=== PATIENT | female | born 1955 | race Caucasian/White ===

== ENCOUNTER 2019-11-30 13:44 | Inpatient (IN) | payer BC ==
[~2019-11-30] VITALS: Ht 167.6 cm; Wt 41.3 kg
--- NOTE | 2019-11-30 16:00 | NUR ---
PT REC'D TO ER C/O PAIN AND SWOLLEN FEET ABD PAIN FOR MONTH . WAS SEEN AT ANOTHER HOSP ONE DAY AGO
[2019-11-30] MEDS ORDERED: OLAN2.5T3 PO (16:01)
[2019-11-30] MEDS ORDERED: LEVO50TA PO (16:01)
[2019-11-30 16:30] LABS: APPEARANCE,URINE Clear (CLEAR); BILIRUBIN,URINE Negative (NEGATIVE); BLOOD, URINE Negative Ery/uL (NEGATIVE); COLOR,URINE Yellow (YELLOW); KETONES,URINE Trace (NEGATIVE); LEUKOCYTE ESTERASE ,URINE Negative (NEGATIVE); NITRITE, URINE Negative (NEGATIVE); PH,URINE 5.5 (5.0-8.0); PROTEIN,URINE Negative (NEGATIVE); UGLUCOSE Negative (NEGATIVE); UROBILINOGEN,URINE 0.2 EU/dL (0.2)
[2019-11-30 17:03] LABS: BASOPHILS % (AUTO) 0.5 % (0.0-2.0); EOSINOPHILS % (AUTO) 0.3 % (0.0-6.0); HEMATOCRIT 42 % (33-45); LYMPHOCYTES # (AUTO) 0.7 /CMM (0.8-4.8); LYMPHOCYTES % (AUTO) 20.1 % (20.0-44.0); MEAN CORPUSCULAR HGB CONC 33 g/dl (31.0-36.0); MEAN CORPUSCULAR VOLUME 97 fL (82-100); MONOCYTES # (AUTO) 0.2 /CMM (0.1-1.30); NEUTROPHILS # (AUTO) 2.5 /CMM (1.8-8.9); NEUTROPHILS % (AUTO) 73.1 % (43.0-81.0); PLATELET COUNT (AUTO) 160 /CMM (150-450); RED BLOOD CELL COUNT(AUTO) 4.34 MIL/uL (4.0-5.2); WHITE BLOOD COUNT (AUTO) 3.5 K/uL (4.3-11.0)
--- NOTE | 2019-11-30 17:03 | NUR ---
UA SENT TO LAB PT HAD ULTRASOUND OF FEET AND CT OF ABD. CALLED WI;; ARRIVE TO SPEAK WITH
--- NOTE | 2019-11-30 17:04 | NUR ---
LABS DRAWN SENT TO LAB
[2019-11-30 17:15] LABS: CARBON DIOXIDE 25 mmol/L (21-32); CHLORIDE 100 mmol/L (98-107); CREATININE 1.1 mg/dL (0.6-1.3); GLUCOSE 69 mg/dL (74-106); POTASSIUM 4.2 mmol/L (3.5-5.1); SODIUM SERUM 135 mmol/L (136-145); UREA NITROGEN, BLOOD 19 mg/dL (7-18)
[2019-11-30 17:21] LABS: ALANINE AMINOTRANSFERASE 35 U/L (12-78); ALBUMIN 3.7 g/dL (3.4-5.0); ALKALINE PHOSPHATASE 75 U/L (46-116); ASPARTATE AMINOTRANSFERASE 44 U/L (15-37); BILIRUBIN,DIRECT 0.1 mg/dL (0.0-0.2); BILIRUBIN,TOTAL 0.8 mg/dL (0.2-1.0); TOTAL PROTEIN, SERUM 6.8 g/dL (6.4-8.2)
[2019-11-30 17:38] LABS: THYROID STIMULATING HORMONE 5.628 uIU/mL (0.358-3.74)
--- NOTE | 2019-11-30 17:50 | NUR ---
CALLED BHUPINDER ROMERO. SHE WILL BE HERE IN 1 HOUR.
[2019-11-30 18:25] LABS: ACETAMINOPHEN 0 ug/ml (10-30); ALCOHOL, BLOOD < 3 mg/dL (0-0); SALICYLATE < 0.2 mg/dL (2.8-20.0)
[2019-11-30] MEDS ORDERED: ASPIRIN 81 MG TAB.CHEW PO ONE ×2 (19:00→19:30)
--- NOTE | 2019-11-30 19:05 | NUR ---
[facility] - [phone].
--- NOTE | 2019-11-30 19:07 | NUR ---
trop 0.069 notified md order asa 162 pt refused notified
--- NOTE | 2019-11-30 19:14 | NUR ---
PAGED [facility].
[2019-11-30] MEDS ORDERED: ASPIRIN 81 MG TAB.CHEW ONE (19:16)
--- NOTE | 2019-11-30 19:20 | NUR ---
REPORT RECEIVED FROM LINO ARELLANO FOR PAULINA
--- NOTE | 2019-11-30 19:24 | NUR ---
pt ok 81 mg asa only iv satrted 20g rt ac pt crying very upset didn't like it
--- NOTE | 2019-11-30 20:34 | NUR ---
CALLED TO GIVE REPORT, NO ANSWER
[2019-11-30] MEDS ORDERED: LEVO25TA7 PO (20:41)
--- NOTE | 2019-11-30 20:48 | NUR ---
PT TRANSFERRED TO ROOM IN STABLE CONDITION
--- NOTE | 2019-11-30 21:52 | NUR ---
MS/TELE/RN RECEIVED PATIENT FROM E.R. VIA WHEELCHAIR, AWAKE, ALERT, ORIENTED, ANXIOUS, NO DISTRESS NOTED, NO C/O PAIN AT THIS TIME, ADMISSION DONE PER PROTOCOL, DENIES HISTORY OF SCHIZOPHRENIA, DENIES SUICIDAL IDEATION, REFUSED SKIN ASSESSMENT/PHOTO, TAUGHT THE USE OF CALL LIGHT AND PLACED IT AT BEDSIDE WITHIN REACH. SENT MESSAGE TO DR.TIM HERNANDEZ FOR ADMISSION ORDERS, RECEIVED ORDERS TO START FULL LIQUID DIET. WILL MONITOR.
[2019-11-30] MEDS ORDERED: ACETAMINOPHEN 325 MG TABLET PO PRN (22:30)
[2019-11-30] MEDS ORDERED: ONDANSETRON HCL/PF 4 MG/2 ML VIAL IVP PRN (22:30)
[2019-11-30] MEDS ORDERED: Z GUARD REMEDY 2 OZ OINT TP PRN (22:30)
[2019-11-30] MEDS: OLANZAPINE 5 MG/TAB.RAPDIS SL SCH (22:30)
[2019-11-30 23:00] VITALS: BP 131/87
[2019-11-30] MEDS: IV NS 0.9% 1,000 ML IV PRN (23:33)
[2019-12-01] VITALS: BP 126/64
--- NOTE | 2019-12-01 02:00 | NUR ---
MS/TELE/RN PATIENT IS SLEEPING AT THIS TIME, APPEAR COMFORTABLE, NO SIGNS OF DISTRESS NOTED, CALL LIGHT IN REACH. WILL MONITOR.
[2019-12-01 04:00] VITALS: BP 95/54
[2019-12-01 05:19] LABS: BASOPHILS % (AUTO) 0.4 % (0.0-2.0); EOSINOPHILS % (AUTO) 0.1 % (0.0-6.0); HEMATOCRIT 39 % (33-45); HEMOGLOBIN 13.2 g/dL (11.5-14.8); LYMPHOCYTES # (AUTO) 0.9 /CMM (0.8-4.8); MEAN CORPUSCULAR HGB CONC 34 g/dl (31.0-36.0); MEAN CORPUSCULAR VOLUME 96 fL (82-100); MONOCYTES # (AUTO) 0.2 /CMM (0.1-1.30); MONOCYTES % (AUTO) 6.9 % (2.0-12.0); NEUTROPHILS # (AUTO) 2.4 /CMM (1.8-8.9); NEUTROPHILS % (AUTO) 66.6 % (43.0-81.0); PLATELET COUNT (AUTO) 148 /CMM (150-450); RED BLOOD CELL COUNT(AUTO) 4.06 MIL/uL (4.0-5.2); WHITE BLOOD COUNT (AUTO) 3.6 K/uL (4.3-11.0)
[2019-12-01 05:29] LABS: ALBUMIN 3.3 g/dL (3.4-5.0); BILIRUBIN,TOTAL 0.7 mg/dL (0.2-1.0); CALCIUM, SERUM 8.6 mg/dL (8.5-10.1); CREATININE 0.9 mg/dL (0.6-1.3); MAGNESIUM 2.1 mg/dL (1.8-2.4); PHOSPHORUS 3.9 mg/dL (2.5-4.9)
--- NOTE | 2019-12-01 06:57 | NUR ---
MS/TELE/RN PATIENT IS AWAKE, COMFORTABLE, NO DISTRESS NOTED, CALL LIGHT IN REACH, ALL NEEDS ATTENDED AT THIS TIME, WILL CONTINUE TO MONITOR.
[2019-12-01] MEDS: LEVOTHYROXINE SODIUM 50 MCG TABLET PO SCH (07:30)
--- NOTE | 2019-12-01 07:30 | NUR ---
TELE/RN OPENING NOTES RECEIVED PATIENT ON BED. PATIENT ALERT AND ORIENTED X4. NO RESPIRATORY DISTRESS NOTED. NO COMPLAINED PAIN AT THIS TIME. WILL CONTINUE TO MONITOR.
--- NOTE | 2019-12-01 07:30 | NUR ---
TELE/RN NOTES PATIENT REFUSED TO TAKE LEVOTHYROXINE 50MCG 1 TAB EXPLAINED THE RISK AND BENEFITS PATIENT STILL REFUSING.
[2019-12-01 08:00] VITALS: BP 119/72
[2019-12-01] MEDS: OLANZAPINE 5 MG/TAB.RAPDIS SL SCH ×2 (09:00→17:11)
[2019-12-01] MEDS: ENOXAPARIN SODIUM 40 MG/0.4 ML DISP.SYRIN SQ SCH (09:00)
--- NOTE | 2019-12-01 11:47 | NUR ---
TELE/RN NOTES PATIENT REFUSED TAKING SYNTHROID 50MCG AND LOVENOX 40MG EXPLAINED THE RISK AND BENEFITS PATIENT STILL REFUSED. SYPREXA 5MG IS ON HOLD DUE TO PATIENT IS ON NPO.
--- NOTE | 2019-12-01 12:50 | NUR ---
TELE/RN NOTES PATIENT NOTED TELE MONITOR SVT 154-160 WITH MULTIFOCAL PVC MD IS AWARE AND ORDER A STAT EKG ONCE PATIENT COME BACK FROM THE SCAN
--- NOTE | 2019-12-01 13:00 | NUR ---
TELE/RN NOTES PATIENT IS OUT IN THE UNIT FOR [facility] SCAN SPECIAL EDUCATION PARAPROFESSIONAL SAM.
--- NOTE | 2019-12-01 15:26 | NUR ---
TELE/RN NOTES PATIENT IS BACK IN THE UNIT FROM RADIOLOGY
[2019-12-01] MEDS: IV NS 0.9% 1,000 ML IV PRN (15:28)
[2019-12-01 16:00] VITALS: BP 111/81
--- NOTE | 2019-12-01 16:00 | NUR ---
RT PT REFUSED EKG RN AND CHARGED INFORMED
--- NOTE | 2019-12-01 17:02 | NUR ---
TELE/RN NOTES PATIENT HAVE SVT ELEVATION 154-160 WITH MULTIFOCAL PVC MD IS AWARE AND NO NEW ORDER AT THIS TIME.
--- NOTE | 2019-12-01 19:46 | NUR ---
TELE/RN CLOSING NOTES PATIENT IS ON BED. PATIENT IS ALERT AND ORIENTED X 4. PATIENT DENIES PAIN AT THIS TIME. NO APPARENT DISTRESS NOTED. IVF OF NS 1L AT 75ML/HR ON AND INFUSING WELL. SEEN AND EXAMINED BY MD WITH ORDERS MADE AND CARRIED OUT. SEEN BY PSYCH MD. BED SIDE IN LOW POSITION, SIDE RAILS UP X2. CALL LIGHT WITHIN REACH. WILL ENDORSED TO SWAGING MACHINE ADJUSTER FOR PAULINA.
--- NOTE | 2019-12-01 19:50 | NUR ---
RN OPENING NOTES RECEIVED REPORT FROM DAYSHIFT RN. FOUND Pt AWAKE, WALKING AROUND IN THE ROOM. NO S/S OF ACUTE DISTRESS OR SOB NOTED. Pt IS A/OX3, VERBAL, ABLE TO MAKE NEEDS KNOWN. IS WORRIED AND CONCERNED ABOUT MULTIPLE THINGS, JOSE ABOUT FOOD AND SUGAR. PER REPORT Pt WAS SEEN BY PSYCH MD DR ACEVES. ON TELE MONITOR, WITH TELE READING SR 65 TO SB 45 WHEN SLEEPING, BASELINE. IV ACCESS ON RAC #20G, IVF NS RUNNING @75ML/HR. SAFETY MEASURES IN PLACE. BED LOW, LOCKED, HOB ELEVATED, SIDE RAILS UP, CALL LIGHT AND BEDSIDE TABLE WITHIN REACH. WILL CONTINUE TO MONITOR Pt's CONDITION AND SAFETY THROUGHOUT THE NIGHT.
[2019-12-01 20:30] VITALS: BP 122/73
[2019-12-01 20:34] VITALS: BP 122/73
[2019-12-01] MEDS ORDERED: ATORVASTATIN 10 MG TABLET PO SCH (22:00)
[2019-12-02 00:30] VITALS: BP 110/73
[2019-12-02] MEDS: IV NS 0.9% 1,000 ML IV PRN ×2 (06:25→21:13)
--- NOTE | 2019-12-02 06:50 | NUR ---
RN CLOSING NOTES NO SIGNIFICANT CHANGES IN Pt's CONDITION. Pt REMAINS STABLE PER BASELINE. NO S/S OF ACUTE DISTRESS OR SOB NOTED DURING THE NIGHT. Pt IS RESTING COMFORTABLY IN BED. ALL NEEDS MET AND ATTENDED TO. SAFETY MEASURES IN PLACE. BED LOW, LOCKED, HOB ELEVATED, SIDE RAILS UP, CALL LIGHT AND BEDSIDE TABLE WITHIN REACH. TELE READING SR 65. WILL ENDORSE TO DAYSHIFT RN FOR Pt's PAULINA.
--- NOTE | 2019-12-02 07:30 | NUR ---
MS RN NOTES RECEIVED PATIENT IN BED, ASLEEP. AROUSABLE TO VERBAL AND TACTILE STIMULI. NO SOB. DENIES ANY C/O PAIN NOR DISCOMFORT AT THIS TIME. RIGHT AC # 20 INTACT AND PATENT INFUSING NS @ 75ML/HR MILI WELL. CALL LIGHT WITHIN REACH. BED IN LOWEST POSITION, LOCKED.
[2019-12-02 07:33] LABS: BASOPHILS % (AUTO) 0.6 % (0.0-2.0); EOSINOPHILS % (AUTO) 0.1 % (0.0-6.0); HEMATOCRIT 41 % (33-45); HEMOGLOBIN 13.6 g/dL (11.5-14.8); LYMPHOCYTES # (AUTO) 0.7 /CMM (0.8-4.8); LYMPHOCYTES % (AUTO) 23.8 % (20.0-44.0); MEAN CORPUSCULAR HGB CONC 33 g/dl (31.0-36.0); MEAN CORPUSCULAR VOLUME 96 fL (82-100); MONOCYTES # (AUTO) 0.2 /CMM (0.1-1.30); MONOCYTES % (AUTO) 5.7 % (2.0-12.0); NEUTROPHILS # (AUTO) 2.1 /CMM (1.8-8.9); NEUTROPHILS % (AUTO) 69.8 % (43.0-81.0); PLATELET COUNT (AUTO) 155 /CMM (150-450); RED BLOOD CELL COUNT(AUTO) 4.31 MIL/uL (4.0-5.2)
[2019-12-02 07:52] LABS: ALBUMIN 3.4 g/dL (3.4-5.0); BILIRUBIN,TOTAL 0.7 mg/dL (0.2-1.0); CALCIUM, SERUM 8.7 mg/dL (8.5-10.1); PHOSPHORUS 3.6 mg/dL (2.5-4.9); TOTAL PROTEIN, SERUM 6.2 g/dL (6.4-8.2)
[2019-12-02 07:55] LABS: THYROID STIMULATING HORMONE 6.152 uIU/mL (0.358-3.74)
[2019-12-02 08:00] VITALS: BP 123/76
[2019-12-02] MEDS: LEVOTHYROXINE SODIUM 50 MCG TABLET PO SCH (08:14)
[2019-12-02] MEDS: OLANZAPINE 5 MG/TAB.RAPDIS SL SCH ×2 (09:12→17:57)
[2019-12-02] MEDS: FOLIC ACID 1 MG TABLET PO SCH (09:12)
[2019-12-02] MEDS: ENOXAPARIN SODIUM 40 MG/0.4 ML DISP.SYRIN SQ SCH (09:13)
--- NOTE | 2019-12-02 14:00 | NUR ---
MS RN NOTES RECEIVED A CALL FROM NICOLAS, PER NICOLAS, HE HAD SPOKEN TO PATIENT'S PSYCHIATRIST DR. DIANNA AGEE AND DR. AGEE HAD WANTED PATIENT TO BE TRANSFERRED TO [facility] D/T PSYCH ISSUES AND THAT DR. CHECO ANDREWS AT THAT HOSPITAL WILL RESUME CARE OF THE PATIENT PER DR. AGEE. RODNEY AND COAL BAGGER LIZZIE.
[2019-12-02 16:00] VITALS: BP 120/84
--- NOTE | 2019-12-02 19:17 | NUR ---
MS RN NOTES PATIENT RESTING COMFORTABLY IN BED. NO S/S OF RESPIRATORY DISTRESS. DENIES ANY C/O PAIN NOR DISCOMFORT AT THIS TIME. REQUIRES FREQUENT REDIRECTION. AMBULATORY WITH STEADY GAIT. RIGHT AC # 20 INTACT AND PATENT INFUSING NS @ 75ML/HR MILI WELL. STILL WITH POOR PO INTAKE DESPITE OF EDUCATION AND EXPLANATIONS GIVEN. ABLE TO VERBALIZE NEEDS. CALL LIGHT WITHIN REACH. BED IN LOWEST POSITION, LOCKED. IN NO APPARENT DISTRESS.
--- NOTE | 2019-12-02 19:30 | NUR ---
CORRESPONDENCE TRANSCRIBER NOTE, RECEIVED PATIENT AWAKE AND IN BED, NO S/S OR COMPLAINTS OF PAIN AT THIS TIME. PATIENT BREATHING IS UNLABORED WITH EQUAL RISE AND FALL OF THE CHEST. PATIENT IS ALERT AND ORIENTED X 3 ON ROOM AIR WITH A SPOO2 98%. PATIENT HAS RIGHT AC 20 GAUGE SALINE LOCK THAT IS INTACT, PATENT, AND FLUSHING WELL WITH NO S/S OF INFILTRATION. PATIENT ASSISTED WITH TURNING AND REPOSITIONING Q2HR AND PRN FOR COMFORT AND CIRCULATION. PATIENT HAS NO NEEDS AT THIS TIME. PATIENT EDUCATED ON THE USE OF THE CALL LIGHT. PATIENT BED SIDE RAILS UP X 2 FOR SAFETY. PATIENT BED IS LOCKED AND LOW WILL CONTINUE TO MONITOR AND MAINTAIN SAFETY WITH THE HELP OF STAFF.
[2019-12-02 20:00] VITALS: BP 118/74
--- NOTE | 2019-12-03 06:37 | NUR ---
APPLICATION COUNSELOR NOTE, PATIENT AWAKE AND IN BED, NO S/S OR COMPLAINTS OF PAIN AT THIS TIME. PATIENT BREATHING IS UNLABORED WITH EQUAL RISE AND FALL OF THE CHEST. PATIENT IS ALERT AND ORIENTED X 3 ON ROOM AIR WITH A SPOO2 98%. PATIENT HAS RIGHT FORE ARM 22GAUGE SALINE LOCK THAT IS INTACT, PATENT, AND FLUSHING WELL WITH NO S/S OF INFILTRATION. PATIENT ASSISTED WITH TURNING AND REPOSITIONING Q2HR AND PRN FOR COMFORT AND CIRCULATION. PATIENT HAS NO NEEDS AT THIS TIME. PATIENT BED SIDE RAILS UP X 2 FOR SAFETY. PATIENT BED IS LOCKED AND LOW WILL ENDORSE TO AM SHIFT NURSE FOR CONTINUATION OF CARE.
[2019-12-03] MEDS: LEVOTHYROXINE SODIUM 50 MCG TABLET PO SCH ×2 (07:37→08:08)
[2019-12-03 08:00] VITALS: BP 155/77
[2019-12-03 08:21] LABS: CANCER AG, 125 20.3 U/mL (0.0-38.1); CANCER AG, 15-3 12.9 U/mL (0.0-25.0); IMMUNOGLOBULIN A, SERUM 270 mg/dL (87-352); IMMUNOGLOBULIN G, SERUM 992 mg/dL (586-1602); IMMUNOGLOBULIN M, SERUM 89 mg/dL (26-217)
--- NOTE | 2019-12-03 08:43 | NUR ---
RN NOtes; Received pt. awake is her room an IV if NS at 75cc/hr, responsive to staffs. No sign of distress noted. Compliant on the due meds. Needs attended and safety precautions in place. Bed locked and set to lowest position with side rails x 2 up. Call light within reach. Will continue to monitor.
[2019-12-03] MEDS: FOLIC ACID 1 MG TABLET PO SCH (09:06)
[2019-12-03] MEDS: OLANZAPINE 5 MG/TAB.RAPDIS SL SCH ×3 (09:06→17:11)
[2019-12-03] MEDS: ENOXAPARIN SODIUM 40 MG/0.4 ML DISP.SYRIN SQ SCH ×2 (09:08→10:11)
[2019-12-03 09:11] LABS: BASOPHILS % (AUTO) 0.3 % (0.0-2.0); EOSINOPHILS % (AUTO) 0.1 % (0.0-6.0); HEMATOCRIT 41 % (33-45); HEMOGLOBIN 13.8 g/dL (11.5-14.8); LYMPHOCYTES # (AUTO) 0.5 /CMM (0.8-4.8); LYMPHOCYTES % (AUTO) 15.6 % (20.0-44.0); MEAN CORPUSCULAR HGB CONC 34 g/dl (31.0-36.0); MEAN CORPUSCULAR VOLUME 96 fL (82-100); MONOCYTES # (AUTO) 0.2 /CMM (0.1-1.30); MONOCYTES % (AUTO) 5.1 % (2.0-12.0); NEUTROPHILS # (AUTO) 2.6 /CMM (1.8-8.9); NEUTROPHILS % (AUTO) 78.9 % (43.0-81.0); PLATELET COUNT (AUTO) 137 /CMM (150-450); RED BLOOD CELL COUNT(AUTO) 4.22 MIL/uL (4.0-5.2); WHITE BLOOD COUNT (AUTO) 3.2 K/uL (4.3-11.0)
[2019-12-03 09:19] LABS: PHOSPHORUS 3.3 mg/dL (2.5-4.9)
--- NOTE | 2019-12-03 10:08 | NUR ---
Notified Aditi SANDERS) for the glucose of 48.
[2019-12-03] MEDS: IV NS 0.9% 1,000 ML IV PRN (13:19)
--- NOTE | 2019-12-03 13:20 | NUR ---
Follow up on NS 1L rendered at 75 ml/hr.
--- NOTE | 2019-12-03 13:42 | NUR ---
Notified Aditi Love to give a call to Trey Alex, pts. at [phone].
[2019-12-03 16:00] VITALS: BP 129/84
--- NOTE | 2019-12-03 19:02 | NUR ---
RN Closing Noted: Pt. is awake in the room with NS 1L at 75 ml/hr. Ate 100% for dinner, compliant on meds. No distress, noted. Will endorse to the incoming nurse for the continuity of care.
--- NOTE | 2019-12-03 19:30 | NUR ---
BULLET SWAGING MACHINE OPERATOR NOTE, RECEIVED PATIENT AWAKE AND IN BED, NO S/S OR COMPLAINTS OF PAIN AT THIS TIME. PATIENT BREATHING IS UNLABORED WITH EQUAL RISE AND FALL OF THE CHEST. PATIENT IS ALERT AND ORIENTED X 3 ON ROOM AIR WITH A SPOO2 98%. PATIENT HAS RIGHT FORE ARM 22 GAUGE SALINE LOCK THAT IS INTACT, PATENT, AND FLUSHING WELL WITH NO S/S OF INFILTRATION. PATIENT ASSISTED WITH TURNING AND REPOSITIONING Q2HR AND PRN FOR COMFORT AND CIRCULATION. PATIENT HAS NO NEEDS AT THIS TIME. PATIENT EDUCATED ON THE USE OF THE CALL LIGHT. PATIENT BED SIDE RAILS UP X 2 FOR SAFETY. PATIENT BED IS LOCKED AND LOW WILL CONTINUE TO MONITOR AND MAINTAIN SAFETY WITH THE HELP OF STAFF.
[2019-12-03 20:00] VITALS: BP 109/77
[2019-12-04] MEDS: IV NS 0.9% 1,000 ML IV PRN ×2 (01:25→14:59)
--- NOTE | 2019-12-04 07:40 | NUR ---
MS/RN NOTE Patient is resting in bed, a/O x2-3, with periods of confusion, showing no signs of acute distress or SOB, stable on RA. IV line in the right forearm #22g is running NS @75ml/hour. Patient is ambulatory with BRP. Bed is in lowest position,side rails x3 in upright position, call light is within reach, fall safety and aspiration precautions enforced. Will continue with plan of care.
[2019-12-04 08:00] VITALS: BP 123/73
[2019-12-04 08:22] LABS: BASOPHILS % (AUTO) 0.3 % (0.0-2.0); EOSINOPHILS % (AUTO) 0.3 % (0.0-6.0); HEMATOCRIT 40 % (33-45); HEMOGLOBIN 13.3 g/dL (11.5-14.8); LYMPHOCYTES # (AUTO) 0.7 /CMM (0.8-4.8); LYMPHOCYTES % (AUTO) 22.8 % (20.0-44.0); MEAN CORPUSCULAR HGB CONC 33 g/dl (31.0-36.0); MEAN CORPUSCULAR VOLUME 96 fL (82-100); MONOCYTES # (AUTO) 0.2 /CMM (0.1-1.30); MONOCYTES % (AUTO) 6.2 % (2.0-12.0); NEUTROPHILS # (AUTO) 2.2 /CMM (1.8-8.9); NEUTROPHILS % (AUTO) 70.4 % (43.0-81.0); PLATELET COUNT (AUTO) 135 /CMM (150-450); RED BLOOD CELL COUNT(AUTO) 4.13 MIL/uL (4.0-5.2); WHITE BLOOD COUNT (AUTO) 3.1 K/uL (4.3-11.0)
[2019-12-04 08:34] LABS: CALCIUM, SERUM 8.3 mg/dL (8.5-10.1); CREATININE 0.9 mg/dL (0.6-1.3); MAGNESIUM 1.9 mg/dL (1.8-2.4); PHOSPHORUS 2.5 mg/dL (2.5-4.9); POTASSIUM 3.9 mmol/L (3.5-5.1)
[2019-12-04] MEDS: FOLIC ACID 1 MG TABLET PO SCH (08:48)
[2019-12-04] MEDS: OLANZAPINE 5 MG/TAB.RAPDIS SL SCH ×2 (08:48→16:39)
[2019-12-04] MEDS: LEVOTHYROXINE SODIUM 50 MCG TABLET PO SCH (08:48)
[2019-12-04] MEDS: ENOXAPARIN SODIUM 40 MG/0.4 ML DISP.SYRIN SQ SCH ×2 (08:49→09:00)
[2019-12-04 16:00] VITALS: BP 140/90
[2019-12-04] MEDS ORDERED: Folic Acid PO (16:05)
[2019-12-04] MEDS ORDERED: ACET325T53 PO (16:05)
[2019-12-04] MEDS ORDERED: ENOX40DI SQ (16:05)
[2019-12-04] MEDS ORDERED: ONDA4TAB5 PO (16:05)
[2019-12-04] MEDS ORDERED: OLAN5TAB6 SL (16:05)
[2019-12-04 16:13] VITALS: BP 140/90
--- NOTE | 2019-12-04 18:31 | NUR ---
MS/RN CLOSING NOTE Patient is resting in bed, a/O x2-3, with periods of confusion, showing no signs of acute distress or SOB, stable on RA. IV line in the right forearm #22g is running NS @75ml/hour. Patient is ambulatory with BRP. Not able to collect stool sample due to no BM today. Bed is in lowest position,side rails x3 in upright position, call light is within reach, fall safety and aspiration precautions enforced. Will endorse to marine equipment engineer.
--- NOTE | 2019-12-04 19:43 | NUR ---
MS RN NOTES PATIENT RECEIVED IN BED RESTING, ALERT AND ORIENTED 2-3. PATIENT ON ROOM AIR, WITH NO SIGNS OF SOB AND RESPIRATORY DISTRESS, WITH EVEN NON-LABORED BREATHING. PATIENT IV ACCESS INTACT AND PATENT, ON RIGHT FOREARM, RUNNING NORMAL SALINE, 75ml/hr. PROVIDED COMFORT MEASURES TO PATIENT, NO SIGNS OF PAIN OR DISCOMFORT AT THIS TIME. SAFETY PRECAUTIONS IN PLACE WITH BED IN THE LOWEST POSITION, BILATERAL SIDE RAILS UP, BED LOCKED AND CALL LIGHT WITHIN EASY REACH OF THE PATIENT. WILL CONTINUE TO MONITOR PATIENT.
[2019-12-04 20:11] VITALS: BP 124/80
[2019-12-05] MEDS: IV NS 0.9% 1,000 ML IV PRN ×2 (03:27→18:20)
--- NOTE | 2019-12-05 03:33 | NUR ---
MS RN NOTES [facility] CALLED, SPOKE WITH RODNEY FOR REPORT, HOWEVER INFORMED SHE WILL CALL AGAIN WHEN PATIENT BED WILL BE AVAILABLE. STILL WAITING FOR CALL AND TO GIVE REPORT.
--- NOTE | 2019-12-05 07:24 | NUR ---
MS RN NOTES PATIENT IN BED, RESTING COMFORTABLY. ALERT AND ORIENTED 2-3. ON ROOM AIR, WITH NO SIGNS OF RESPIRATORY DISTRESS PRESENT, WITH EVEN NON-LABORED BREATHING. PATIENT IV ACCESS IN PLACE INTACT AND PATENT RUNNING NS AT 75ml/hr. PATIENT SKIN KEPT CLEAN AND DRY. PROVIDED COMFORT MEASURES TO PATIENT. SAFETY PRECAUTIONS IN PLACE WITH BED LOCKED, BILATERAL SIDE RAILS UP, AND CALL LIGHT WITHIN EASY REACH OF THE PATIENT. WILL ENDORSE PAULINA TO UPCOMING DAYSHIFT NURSE.
[2019-12-05 08:00] VITALS: BP 129/83
[2019-12-05 08:39] LABS: BASOPHILS % (AUTO) 0.4 % (0.0-2.0); EOSINOPHILS % (AUTO) 0.1 % (0.0-6.0); HEMATOCRIT 39 % (33-45); HEMOGLOBIN 13.1 g/dL (11.5-14.8); LYMPHOCYTES # (AUTO) 0.6 /CMM (0.8-4.8); LYMPHOCYTES % (AUTO) 22.4 % (20.0-44.0); MEAN CORPUSCULAR HGB CONC 34 g/dl (31.0-36.0); MEAN CORPUSCULAR VOLUME 96 fL (82-100); MONOCYTES # (AUTO) 0.2 /CMM (0.1-1.30); MONOCYTES % (AUTO) 6.1 % (2.0-12.0); PLATELET COUNT (AUTO) 130 /CMM (150-450); RED BLOOD CELL COUNT(AUTO) 4.07 MIL/uL (4.0-5.2); WHITE BLOOD COUNT (AUTO) 2.8 K/uL (4.3-11.0)
[2019-12-05 09:02] LABS: ALBUMIN 3.3 g/dL (3.4-5.0); BILIRUBIN,TOTAL 0.6 mg/dL (0.2-1.0); CALCIUM, SERUM 8.5 mg/dL (8.5-10.1); CREATININE 0.9 mg/dL (0.6-1.3); MAGNESIUM 1.7 mg/dL (1.8-2.4); PHOSPHORUS 2.5 mg/dL (2.5-4.9); POTASSIUM 3.7 mmol/L (3.5-5.1); TOTAL PROTEIN, SERUM 6.2 g/dL (6.4-8.2)
[2019-12-05 11:07] LABS: *SPE A/G RATIO 1.2 (0.7-1.7); *SPE ALBUMIN 3.2 g/dL (2.9-4.4); *SPE ALPHA-1-GLOBULIN 0.2 g/dL (0.0-0.4); *SPE ALPHA-2-GLOBULIN 0.5 g/dL (0.4-1.0); *SPE BETA GLOBULIN 0.9 g/dL (0.7-1.3); *SPE GLOBULIN, TOTAL 2.7 g/dL (2.2-3.9); *SPE M-SPIKE Not Observed g/dL (Not Observed); *SPEGAMMA GLOBULIN 1.1 g/dL (0.4-1.8)
[2019-12-05] MEDS: Magnesium 1GM/D5W 100ML PREMIX 100 ML IV SCH ×2 (11:18→12:18)
[2019-12-05 16:00] VITALS: BP 128/84
[2019-12-05] MEDS: OLANZAPINE 5 MG/TAB.RAPDIS SL SCH ×2 (17:00→18:20)
[2019-12-05] MEDS: PROSOURCE / PROSTAT (PYXIS) 30 ML UDC PO SCH (17:00)
[2019-12-05] MEDS: FOLIC ACID 1 MG TABLET PO SCH (18:20)
[2019-12-05] MEDS: LEVOTHYROXINE SODIUM 50 MCG TABLET PO SCH (18:20)
[2019-12-05] MEDS: ENOXAPARIN SODIUM 40 MG/0.4 ML DISP.SYRIN SQ SCH (18:22)
--- NOTE | 2019-12-05 18:30 | NUR ---
MS/RN Closing Note Patient sitting in bed, does no c/o pain or any discomfort. skin is warm to touch, kept clean/dry,. Respiratory even and unlabored with room air. Kept lower position of the bed with locked wheel and elevated head of bed. Call light within reach, will endorse night baker.
[2019-12-05 20:46] VITALS: BP 144/51
--- NOTE | 2019-12-06 05:18 | NUR ---
ENDING NOTES: PATIENT SLEPT FOR SHORT INTERVALS...2 -3 HOURS AT A TIME AND THENWOULD GET UP AND WALK ABOUT. SHE WOULD PULL ME ASIDE AND POINT TO A MALE DENTAL MOLD MAKER OR MALE NURSE AND SAY "HE IS LOOKING OUR WAY, LOOK SEE HIM LOOKING AT US". SHE TOUCHED THE BUTTONS ON THE IVAC AND CLOTTED OFF HER IV PLUS IT WAS LEAKING, SHE WAS SCARED TO HAVE ME REMOVE THE IN AFRAID SHE WOULD BLEED TO . SHE STATED SHE HAD A LIFE TO LIVE AND NOT READY TO GO. IV REMOVED NO BLEEDING PLACED GAUZE OVER THE SITE WITH PAPRE TAPE. INSTRUCTED I NEEDED TO START A NEW AND SHE COMMENTED 'NOT IF IT WILL HURT ME". SAW NO NEED FOR IV . ALL MEDS ARE PO AND DRINKS PLENTY AND EATS WELL. POSSIBLE D/C WHEN BED AVAILABLE AT [facility]. SHE IS PLEASENT AND ENJOYS CONVERSATION. NO SOB NO H/A NO CHESTPAIN
--- NOTE | 2019-12-06 07:30 | NUR ---
ms rn received on bed, awake,alert,oriented x4,not in any form of distress, respirations even and unlabored,no sob noted.lungs are clear,abdomen soft, positive bowel sounds,denies pain a this time,all needs attended.
[2019-12-06 08:00] VITALS: BP 156/90
[2019-12-06] MEDS ORDERED: MAGNESIUM OXIDE 400 MG TABLET PO ONE (09:00)
[2019-12-06] MEDS: ENOXAPARIN SODIUM 40 MG/0.4 ML DISP.SYRIN SQ SCH (09:00)
--- NOTE | 2019-12-06 09:20 | NUR ---
ms springer breakfast served,due meds given, tolerated well.
[2019-12-06] MEDS: FOLIC ACID 1 MG TABLET PO SCH (09:33)
[2019-12-06] MEDS: OLANZAPINE 5 MG/TAB.RAPDIS SL SCH ×2 (09:33→17:00)
[2019-12-06] MEDS: LEVOTHYROXINE SODIUM 50 MCG TABLET PO SCH (09:36)
[2019-12-06] MEDS: PROSOURCE / PROSTAT (PYXIS) 30 ML UDC PO SCH ×2 (09:38→17:00)
--- NOTE | 2019-12-06 12:15 | NUR ---
m/s rn: notes report given to asher (machine silk screen printer) for continuity of care.
--- NOTE | 2019-12-06 12:30 | NUR ---
m/s cream cheese maker: notes received pt in bed awake, a/ox4. easily irritable, with paranoid ideation, but denies si/hi at this time. reality orientation provided prn. instructed to call for assistance. will continue to monitor.
--- NOTE | 2019-12-06 14:00 | NUR ---
m/s commodity merchant: notes pt up and about in room at this time. denies si/hi at this time. will continue to monitor.
[2019-12-06 16:00] VITALS: BP 138/90
--- NOTE | 2019-12-06 17:30 | NUR ---
m/s electronic parts salesperson: notes pt refusing her zyprexa at this time and bargaining to take it tonight, stated, "i don't want to take it right now, i want to take it at nighttime." instructed to call for assistance. will continue to monitor.
--- NOTE | 2019-12-06 19:00 | NUR ---
tele wooden boat builder: notes bedside report given to sosa townsend) for continuity of care.
--- NOTE | 2019-12-06 19:00 | NUR ---
Received with patient ambulating independently in the room. Speech clear. States she is in no pain.
[2019-12-06 20:13] VITALS: BP 117/76
[2019-12-06 20:20] VITALS: BP 117/76
--- NOTE | 2019-12-07 05:06 | NUR ---
ENDING NOTES: SLEPT THRU THE NIGHT. SHE AMBULATES IN THE ROOM. KEEPS TO HERSELF. NO SOB OR PAIN THRU THE NIGHT.
--- NOTE | 2019-12-07 07:25 | NUR ---
ms rn received on bed, awake,alert,oriented not in any form of distress, respirations even and unlabored,no so noted, lungs are clear,abdomen soft,positive bowel sound, denies pain at this time,all needs attended.
[2019-12-07 08:00] VITALS: BP 95/56
[2019-12-07] MEDS: LEVOTHYROXINE SODIUM 50 MCG TABLET PO SCH (08:01)
[2019-12-07 09:06] LABS: BASOPHILS % (AUTO) 0.3 % (0.0-2.0); EOSINOPHILS % (AUTO) 0.1 % (0.0-6.0); HEMATOCRIT 45 % (33-45); HEMOGLOBIN 15.2 g/dL (11.5-14.8); LYMPHOCYTES % (AUTO) 28.7 % (20.0-44.0); MEAN CORPUSCULAR HGB CONC 34 g/dl (31.0-36.0); MEAN CORPUSCULAR VOLUME 96 fL (82-100); MONOCYTES # (AUTO) 0.2 /CMM (0.1-1.30); MONOCYTES % (AUTO) 5.2 % (2.0-12.0); NEUTROPHILS # (AUTO) 2.4 /CMM (1.8-8.9); NEUTROPHILS % (AUTO) 65.7 % (43.0-81.0); PLATELET COUNT (AUTO) 155 /CMM (150-450); WHITE BLOOD COUNT (AUTO) 3.6 K/uL (4.3-11.0)
[2019-12-07 09:10] LABS: BILIRUBIN,DIRECT 0.2 mg/dL (0.0-0.2); BILIRUBIN,TOTAL 0.8 mg/dL (0.2-1.0); CALCIUM, SERUM 9.3 mg/dL (8.5-10.1); CREATININE 1.4 mg/dL (0.6-1.3); POTASSIUM 3.6 mmol/L (3.5-5.1); TOTAL PROTEIN, SERUM 7.3 g/dL (6.4-8.2)
--- NOTE | 2019-12-07 09:20 | NUR ---
ms rn due mwds given,tolerated well. comliant
[2019-12-07] MEDS: FOLIC ACID 1 MG TABLET PO SCH (10:09)
[2019-12-07] MEDS: OLANZAPINE 5 MG/TAB.RAPDIS SL SCH ×2 (10:09→17:11)
[2019-12-07] MEDS: PROSOURCE / PROSTAT (PYXIS) 30 ML UDC PO SCH ×2 (10:11→17:11)
[2019-12-07] MEDS: ENOXAPARIN SODIUM 40 MG/0.4 ML DISP.SYRIN SQ SCH (10:13)
--- NOTE | 2019-12-07 17:00 | NUR ---
ms rn patient to be discharge to home, discharge instructions given to ,will monitor patient.
--- NOTE | 2019-12-07 17:20 | NUR ---
ms rn called [facility] for prescription,patient went home,accompanied by ,all needs attended.
== END 2019-12-07 18:30 | disposition home or self-care (01) | DRG 444 ==
LOC: ER 13:44 → TELE 20:41 → MED 12-02 09:17
PROVIDERS: ADMIT Nurse Practitioner Acute Care; ATTEND Nurse Practitioner Acute Care
DX: K82.8 Other specified diseases of gallbladder (principal); I21.A1 Myocardial infarction type 2; G93.41 Metabolic encephalopathy; E43 Unspecified severe protein-calorie malnutrition; N17.0 Acute kidney failure with tubular necrosis; F20.0 Paranoid schizophrenia; E87.1 Hypo-osmolality and hyponatremia; N17.9 Acute kidney failure, unspecified; R64 Cachexia; I47.1 Supraventricular tachycardia; I77.4 Celiac artery compression syndrome; Z68.1 Body mass index [BMI] 19.9 or less, adult; R62.7 Adult failure to thrive; E03.9 Hypothyroidism, unspecified; D69.6 Thrombocytopenia, unspecified; F32.9 Major depressive disorder, single episode, unspecified; Z88.0 Allergy status to penicillin; Z79.899 Other long term (current) drug therapy; Z87.891 Personal history of nicotine dependence; Z81.8 Family history of other mental and behavioral disorders; Z80.0 Family history of malignant neoplasm of digestive organs; Z79.890 Hormone replacement therapy; F41.9 Anxiety disorder, unspecified; F29 Unspecified psychosis not due to a substance or known physiological condition; F39 Unspecified mood [affective] disorder; R74.0 Nonspecific elevation of levels of transaminase and lactic acid dehydrogenase [LDH]; K81.1 Chronic cholecystitis; M85.80 Other specified disorders of bone density and structure, unspecified site; G89.29 Other chronic pain; D72.819 Decreased white blood cell count, unspecified
CPT/HCPCS: 36415; 71045-TC; 78226; 80048-TC; 80053-TC; 80061-TC; 80076-TC; 80305; 81000-TC; 82378; 82728-TC; 82784; 83540-TC; 83615-TC; 83735-TC; 83880; 84100-TC; 84155; 84165; 84439-TC; 84443-TC; 84484-TC; 85025-TC; 86300; 86304; 86334; 86706; 86803; 87081-TC; 87340; 93307-TC; 93970-TC; A9537; G0378; G0480; J1650; J7030